=== PATIENT | female | born 1935 | race Caucasian/White ===

== ENCOUNTER 2021-05-02 10:07 | Inpatient (IN) | payer MEDICARE ==
[~2021-05-02] VITALS: Ht 160 cm; Wt 108.9 kg
[~2021-05-02 10:07] MED LIST: AMLODIPINE BESYL5 MG PO; ASPIRIN81 M1 PO; ASPIRIN81 MG; ATENOLOL25 MG PO; BACTRIM DS TAB1 EACH PO; FLAGYL500 MG PO; LASIX40 MG PO; LEVAQUIN500 MG PO; METOPROLOL TART50 MG PO; NORCO 5-325 TA1 EACH PO; NORVASC5 MG PO; PRILOSEC20 MG; TENORMIN50 MG; Z.0.ATENOLOL25 MG PO
[2021-05-02] MEDS ORDERED: DILTIAZEM HCL 5 MG/ML 5 ML VIAL IV STA (10:37)
[2021-05-02] MEDS ORDERED: ALBUTEROL/IPRATROPIUM 3 ML NEB NEB ONE (10:45)
[2021-05-02 10:52] LABS: BASOPHILS # (AUTO) 0.1 (0.0-0.1); BASOPHILS % 0.6 % (0.0-1.0); EOSINOPHILS # (AUTO) 0.1 (0.0-0.4); EOSINOPHILS % 1.5 % (0.0-6.0); HEMATOCRIT 34.2 % (34.2-44.1); HEMOGLOBIN 10.7 g/dL (12.0-16.0); LYMPHOCYTES % 33.3 % (18.0-39.1); MEAN CORPUSCULAR HEMOGLOBIN 32.8 pg (28-32); MEAN CORPUSCULAR HGB CONC 31.3 g/dL (31-35); MEAN CORPUSCULAR VOLUME 104.9 fL (81-99); MONOCYTES # (AUTO) 1.6 (0.2-0.8); MONOCYTES % 17.7 % (4.4-11.3); NEUTROPHILS # (AUTO) 4.1 (2.1-6.9); NEUTROPHILS % 45.6 % (38.7-80.0); PLATELET COUNT 356 x10e3/uL (140-360); RED BLOOD COUNT 3.26 x10e6/uL (3.6-5.1); RED CELL DISTRIBUTION WIDTH 16.1 % (11.7-14.4)
[2021-05-02] MEDS ORDERED: ALBUTEROL/IPRATROPIUM 3 ML NEB ONE (10:52)
[2021-05-02 10:56] LABS: CLARITY,URINE CLOUDY (CLEAR); COLOR,URINE YELLOW (YELLOW); KETONES,URINE NEGATIVE (NEGATIVE); LEUKOCYTE ESTERASE ,URINE NEGATIVE (NEGATIVE); NITRITE,URINE NEGATIVE (NEGATIVE); PROTEIN,URINE DIPSTICK NEGATIVE (NEGATIVE); URINE UROBILINOGEN 0.2 mg/dL (0.2 - 1)
[2021-05-02 11:11] LABS: ALBUMIN 3.9 g/dL (3.5-5.0); ALBUMIN/GLOBULIN RATIO 1.1 (0.8-2.0); ANION GAP 16.5 mmol/L (8-16); BACTERIA,URINE MODERATE /HPF; CREATININE, SERUM 1.13 mg/dL (0.57-1.11); EPITHELIAL CELLS,URINE MODERATE /LPF; POTASSIUM 3.5 mmol/L (3.5-5.1); WBC,URINE (MAN) 0-5 /HPF (0-5)
[2021-05-02 11:19] LABS: CREATINE KINASE MB 1.5 ng/mL (0-5.0)
[2021-05-02 11:21] LABS: INR 0.94; PROTHROMBIN TIME 13.3 seconds (11.9-14.5)
[2021-05-02 11:22] LABS: PARTIAL THROMBOPLASTIN TIME 36.9 seconds (23.8-35.5)
[2021-05-02] MEDS ORDERED: FUROSEMIDE INJ 10 MG/ML 4 ML VIAL IV ONE ×2 (11:30→22:30)
[2021-05-02] MEDS ORDERED: METOPROLOL TARTRATE INJ 1 MG/ML VIAL IV ONE (12:00)
[2021-05-02 13:30] VITALS: BP 150/72
[2021-05-02 13:47] LABS: THYROID STIMULATING HORMONE 2.023 uIU/mL (0.350-4.940)
[2021-05-02 13:48] VITALS: BP 150/72
[2021-05-02] MEDS ORDERED: INFLUENZA VIRUS VAC SPLIT INJ 0.5 ML SYR IM SCH (13:48)
[2021-05-02] MEDS ORDERED: SPIRONOLACTONE25 MG PO (14:07)
[2021-05-02] MEDS ORDERED: DIGOXIN125 MCG PO (14:07)
[2021-05-02] MEDS ORDERED: PANTOPRAZOLE SO40 MG PO (14:07)
[2021-05-02] MEDS ORDERED: ELIQUIS2.5 MG PO (14:07)
[2021-05-02] MEDS ORDERED: METOPROLOL SUCC25 MG PO (14:07)
[2021-05-02] MEDS ORDERED: BUMETANIDE1 MG PO (14:07)
[2021-05-02] MEDS ORDERED: PRAVASTATIN SOD40 MG (14:07)
[2021-05-02 15:52] VITALS: BP 135/91
[2021-05-02 20:00] VITALS: BP 135/91
[2021-05-02 20:36] VITALS: BP 146/81
[2021-05-02] MEDS ORDERED: APIXAB 2.5 MG TABLET PO SCH (22:30)
[2021-05-02] MEDS ORDERED: METOPROLOL TARTRATE INJ 1 MG/ML VIAL IV PRN (22:30)
[2021-05-02] MEDS ORDERED: POTASSIUM CHLORIDE 10MEQ EA PO ONE (22:30)
[2021-05-02] MEDS ORDERED: METOPROLOL TARTRATE 50 MG TAB PO SCH (22:30)
[2021-05-02] MEDS ORDERED: MAGNESIUM SULFATE 2GM/50ML IV ONE (23:15)
[2021-05-02] MEDS ORDERED: MAGNESIUM SULFATE 2GM/50ML 50 ML IV SCH (23:30)
[2021-05-03] VITALS (8 sets, daily range): BP systolic 114–160; BP diastolic 45–72
[2021-05-03] MEDS: DIGOXIN 0.125 MG TAB PO SCH ×2 (01:09→08:53)
[2021-05-03 05:59] LABS: BASOPHILS % 0.4 % (0.0-1.0); EOSINOPHILS # (AUTO) 0.1 (0.0-0.4); EOSINOPHILS % 1.7 % (0.0-6.0); HEMATOCRIT 31.2 % (34.2-44.1); HEMOGLOBIN 9.9 g/dL (12.0-16.0); LYMPHOCYTES # (AUTO) 1.1 (1.0-3.2); LYMPHOCYTES % 14.3 % (18.0-39.1); MEAN CORPUSCULAR HEMOGLOBIN 32.8 pg (28-32); MEAN CORPUSCULAR HGB CONC 31.7 g/dL (31-35); MEAN CORPUSCULAR VOLUME 103.3 fL (81-99); MONOCYTES # (AUTO) 1.6 (0.2-0.8); MONOCYTES % 21.3 % (4.4-11.3); NEUTROPHILS # (AUTO) 4.7 (2.1-6.9); NEUTROPHILS % 61.3 % (38.7-80.0); PLATELET COUNT 294 x10e3/uL (140-360); RED BLOOD COUNT 3.02 x10e6/uL (3.6-5.1); RED CELL DISTRIBUTION WIDTH 16.2 % (11.7-14.4)
[2021-05-03 06:28] LABS: MAGNESIUM 1.7 MG/DL (1.3-2.1)
[2021-05-03 06:32] LABS: CALCIUM 9.1 mg/dL (8.4-10.2); CREATININE, SERUM 1.12 mg/dL (0.57-1.11)
[2021-05-03] MEDS ORDERED: MAGNESIUM SULFATE 2GM/50ML IV ONE (06:45)
[2021-05-03 06:49] LABS: THYROID STIMULATING HORMONE 1.344 uIU/mL (0.350-4.940)
[2021-05-03] MEDS ORDERED: SODIUM CHLORIDE 0.9% 250ML 250 ML ONE (08:23)
[2021-05-03] MEDS: PANTOPRAZOLE SOD 40 MG TABEC PO SCH (08:50)
[2021-05-03] MEDS: FUROSEMIDE INJ 10 MG/ML 4 ML VIAL IV SCH ×3 (08:51→13:51)
[2021-05-03] MEDS: POTASSIUM CHLORIDE 10MEQ EA PO SCH ×2 (08:52→11:10)
[2021-05-03] MEDS: SPIRONOLACTONE 25 MG TAB PO SCH (08:52)
[2021-05-03] MEDS: APIXAB 2.5 MG TABLET PO SCH ×2 (08:53→16:03)
[2021-05-03] MEDS: METOPROLOL TARTRATE 50 MG TAB PO SCH ×2 (08:53→16:04)
[2021-05-03 09:01] LABS: EOSINOPHILS % (MANUAL) 4 % (0-7); LYMPHOCYTES % (MANUAL) 20 % (19-48); MONOCYTES % (MANUAL) 7 % (3.4-9.0); MYELOCYTES % (MANUAL) 1 % (0-0); NEUTROPHILS % (MANUAL) 61 % (40-74)
[2021-05-03] MEDS: ATORVASTATIN 20 MG TAB PO SCH (22:25)
[2021-05-04 04:47] VITALS: BP 126/52
[2021-05-04 06:01] LABS: BASOPHILS % 0.5 % (0.0-1.0); EOSINOPHILS # (AUTO) 0.1 (0.0-0.4); EOSINOPHILS % 1.9 % (0.0-6.0); HEMATOCRIT 32.6 % (34.2-44.1); HEMOGLOBIN 10.4 g/dL (12.0-16.0); LYMPHOCYTES # (AUTO) 1.4 (1.0-3.2); LYMPHOCYTES % 18.6 % (18.0-39.1); MEAN CORPUSCULAR HEMOGLOBIN 33.1 pg (28-32); MEAN CORPUSCULAR HGB CONC 31.9 g/dL (31-35); MEAN CORPUSCULAR VOLUME 103.8 fL (81-99); MONOCYTES # (AUTO) 1.6 (0.2-0.8); MONOCYTES % 22.4 % (4.4-11.3); NEUTROPHILS # (AUTO) 4.1 (2.1-6.9); NEUTROPHILS % 55.5 % (38.7-80.0); PLATELET COUNT 303 x10e3/uL (140-360); RED BLOOD COUNT 3.14 x10e6/uL (3.6-5.1); RED CELL DISTRIBUTION WIDTH 15.9 % (11.7-14.4)
[2021-05-04 06:32] LABS: CALCIUM 8.7 mg/dL (8.4-10.2); CREATININE, SERUM 1.26 mg/dL (0.57-1.11)
[2021-05-04 08:29] VITALS: BP 126/52
[2021-05-04] MEDS: PANTOPRAZOLE SOD 40 MG TABEC PO SCH (08:30)
[2021-05-04 08:37] VITALS: BP 131/66
[2021-05-04] MEDS: SPIRONOLACTONE 25 MG TAB PO SCH (08:39)
[2021-05-04] MEDS: POTASSIUM CHLORIDE 10MEQ EA PO SCH (08:39)
[2021-05-04] MEDS: APIXAB 2.5 MG TABLET PO SCH ×2 (08:39→16:55)
[2021-05-04] MEDS: DIGOXIN 0.125 MG TAB PO SCH (08:40)
[2021-05-04] MEDS: METOPROLOL TARTRATE 50 MG TAB PO SCH (08:41)
[2021-05-04] MEDS: FUROSEMIDE INJ 10 MG/ML 4 ML VIAL IV SCH (08:42)
[2021-05-04] MEDS: SACUBITRIL/VALSARTAN 1 EACH TABLET PO SCH (11:45)
[2021-05-04 12:28] VITALS: BP 131/66
[2021-05-04 16:09] VITALS: BP 123/50
[2021-05-04 20:00] VITALS: BP 137/51
[2021-05-04] MEDS: ATORVASTATIN 20 MG TAB PO SCH (21:19)
[2021-05-05] VITALS: BP 112/53
[2021-05-05 04:00] VITALS: BP 125/72
[2021-05-05] MEDS ORDERED: FUROSEMIDE INJ 10 MG/ML 4 ML VIAL IV SCH (06:00)
[2021-05-05 06:10] LABS: ANION GAP 17.3 mmol/L (8-16); CALCIUM 9.6 mg/dL (8.4-10.2); CREATININE, SERUM 1.36 mg/dL (0.57-1.11); POTASSIUM 4.3 mmol/L (3.5-5.1)
[2021-05-05 08:11] VITALS: BP 125/68
[2021-05-05 08:25] VITALS: BP 125/68
[2021-05-05] MEDS: PANTOPRAZOLE SOD 40 MG TABEC PO SCH (08:47)
[2021-05-05] MEDS ORDERED: METOPROLOL SUCCINATE 50 MG TAB XL PO SCH (09:00)
[2021-05-05] MEDS ORDERED: POTASSIUM CHLORIDE 10MEQ EA PO SCH (09:00)
[2021-05-05] MEDS: DIGOXIN 0.125 MG TAB PO SCH (09:41)
[2021-05-05] MEDS: SACUBITRIL/VALSARTAN 1 EACH TABLET PO SCH (09:41)
[2021-05-05] MEDS: APIXAB 2.5 MG TABLET PO SCH (09:41)
[2021-05-05 11:44] VITALS: BP 129/76
[2021-05-05] MEDS ORDERED: APIXABAN 5 MG TABLET PO SCH (17:00)
== END 2021-05-05 13:45 | disposition home or self-care (01) | DRG 291 ==
LOC: ER 10:15 → ERHOLD 12:07 → MED/SURG3 13:14
PROVIDERS: ADMIT Internal Medicine; ATTEND Internal Medicine
DX: I11.0 Hypertensive heart disease with heart failure (principal); I50.23 Acute on chronic systolic (congestive) heart failure; I48.20 Chronic atrial fibrillation, unspecified; J44.9 Chronic obstructive pulmonary disease, unspecified; F41.9 Anxiety disorder, unspecified; Z88.5 Allergy status to narcotic agent; Z20.822 Contact with and (suspected) exposure to COVID-19; D64.9 Anemia, unspecified; N28.9 Disorder of kidney and ureter, unspecified; Z90.49 Acquired absence of other specified parts of digestive tract; Z79.01 Long term (current) use of anticoagulants; I08.1 Rheumatic disorders of both mitral and tricuspid valves; E83.42 Hypomagnesemia
CPT/HCPCS: 36415; 51700; 71045; 80048; 80053; 81001; 82550; 82553; 83735; 83880; 84100; 84443; 84484; 85025; 85610; 85730; 93005; 93306; 94640; 94799; 99285; J1940; J3475; J7050; U0002